=== PATIENT | male | born 1975 | race Caucasian/White ===

== ENCOUNTER 2021-10-19 09:15 | Emergency (ER) | payer MEDICARE, MEDICAID ==
[~2021-10-19] VITALS: Ht 177 cm; Wt 187.0 kg
[~2021-10-19 09:15] MED LIST: AMLO5TAB2 PO; ARPZ20T PO; CPR500T PO; DOXY100C2 PO; DULO30CA PO; HYDR1TAB PO; MELO-195 PO; METR500T PO; NABU750T PO
[2021-10-19] MEDS ORDERED: CYCL10TA25 PO (11:06)
[2021-10-19] MEDS ORDERED: ACHD5005 PO (11:06)
--- NOTE | 2021-10-19 11:07 | ED Back Pain ---
General Chief Complaint: Back Problems Stated Complaint: BACK PAIN Nursing Triage Note: pt. reports installing ceiling tile yesterday, reported "tweeking my lower back". reports reports taking tylenol last noc. reports not improving today. here for eval. Source of Information: Patient Exam Limitations: No Limitations (SHEA ALVA) History of Present Illness Date Seen by Provider: Oct 19, 2021 Time Seen by Provider: 11:03 Initial Comments Patient is a 46-year-old male who presents ED with back pain. Back pain started late last night early this morning. States he tweaked his back while climbing on a ladder helping a friend with ceiling tiles. Started having pain throughout his entire back worse to his lower back. Describes as sharp pain with muscle spasming with fatigue. Denies any falls. Denies of any bowel or urine incontinence, saddle paresthesia. 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 Denies chest pain, Ernst pain vomiting, diarrhea. Took Tylenol at home without much improvement. (SHEA ALVA) Allergies and Home Medications Allergies Coded Allergies: No Known Drug Allergies (Verified , 02/26/07) Patient Home Medication List Home Medication List Reviewed: Yes (SHEA ALVA) Amlodipine Besylate (Amlodipine Besylate) 5 Mg Tablet, 5 MG PO DAILY, (Reported) Entered as Reported by: ALBARO GIRON on 03/03/10921 Aripiprazole (Abilify 20 Mg) 20 Mg Tab, 20 MG PO DAILY, (Reported) Entered as Reported by: ALBARO GIRON on 03/03/10921 Ciprofloxacin (Cipro) 500 Mg Tablet, 1 TAB PO BID Prescribed by: JUSTYNA MCKEE on 04/18/121814 Cyclobenzaprine HCl (Cyclobenzaprine HCl) 10 Mg Tablet, 10 MG PO TID Prescribed by: SRINI CALDERA on 10/19/21 110 Duloxetine Hcl (Cymbalta) 30 Mg Capsule.dr, 30 MG PO DAILY, (Reported) Entered as Reported by: ALBARO GIRON on 03/03/10921 Hydrocodone Bit/Acetaminophen (Vicodin 5-500 Tablet) 1 Each Tablet, 1-2 EACH PO Q4HR PRN Prescribed by: JUSTYNA MCKEE on 04/18/121814 Hydrocodone/Acetaminophen (Hydrocodone-Acetamin 5-325 mg) 5 Mg-325 Mg Tablet, 1 TAB PO Q4H PRN for PAIN-MODERATE (5-7) Prescribed by: SRINI CALDERA on 10/19/21 1107 Metronidazole (Flagyl 500 Mg) 500 Mg Tab, 1 EACH PO TID Prescribed by: JUSTYNA MCKEE on 04/18/12 1815 Review of Systems Constitutional: No chills, No diaphoresis EENTM: No hearing loss, No blurred vision, No double vision, No mouth pain, No mouth swelling Respiratory: No cough Cardiovascular: No chest pain, No edema Gastrointestinal: No abdominal pain, No diarrhea, No nausea Genitourinary: No decreased output, No discharge Musculoskeletal: back pain; No joint pain; muscle pain Skin: No change in color, No change in hair/nails (SHEA ALVA) All Other Systems Reviewed Negative Unless Noted: Yes (SHEA ALVA) Past Nqxsilq-Pukheo-[id number] Hx Patient Social History Tobacco Use?: No Use of E-Cig and/or Vaping dev: No Substance use?: No Alcohol Use?: No (SHEA ALVA) Immunizations Up To Date Influenza Vaccine Up-to-Date: Yes; Up-to-Date (SHEA ALVA) Past Medical History Sleep Apnea Reproductive Disorders: No Sexually Transmitted Disease: No HIV/AIDS: No Bipolar Adverse Reaction/Blood Tranf: No (SHEA ALVA) Physical Exam Vital Signs Vital Signs - First Documented 10/19/21 10/19/21 09:48 11:35 Temp 36.8 Pulse 59 Resp 18 B/P (MAP) 157/108 Pulse Ox 97 O2 Delivery Room Air (BESSY BELTRAN MD) Vital Signs Capillary Refill : Less Than 3 Seconds (SHEA ALVA) Height, Weight, BMI Height: '" Weight: lbs. oz. [id number]; 59.00 BMI Method:Stated General Appearance: No Apparent Distress, WD/WN HEENT: PERRL/EOMI, TMs Normal, Normal ENT Inspection, Pharynx Normal Neck: Full Range of Motion, Normal Inspection, Non Tender, Supple Cardiovascular: Regular Rate, Rhythm, No Edema, No Gallop, No JVD, No Murmur Respiratory: Chest Non Tender, Lungs Clear, Normal Breath Sounds Gastrointestinal: Normal Bowel Sounds, No Organomegaly, No Pulsatile Mass, Non Tender Back: No Vertebral Tenderness, Other (Generalized back tenderness. No cervical, thoracic or lumbar midline tenderness.) Extremity: Normal Capillary Refill, Normal Inspection, Normal Range of Motion Neurologic/Psychiatric: Alert, Oriented x3, No Motor/Sensory Deficits, Normal Mood/Affect (SHEA ALVA) Progress/Results/Core Measures Results/Orders Medications Given in ED Current Medications Medications Dose Ordered Sig/Earlene Route Start Time Stop Time Status Last Admin Dose Admin Ketorolac Tromethamine 30 mg ONCE ONCE IM 10/19/21 11:15 10/19/21 11:16 DC 10/19/21 11:34 30 MG Orphenadrine Citrate 60 mg ONCE ONCE IM 10/19/21 11:15 10/19/21 11:16 DC 10/19/21 11:35 60 MG (BESSY BELTRAN MD) Vital Signs/I&O 10/19/21 10/19/21 09:48 11:35 Temp 36.8 36.0 Pulse 59 60 Resp 18 18 B/P (MAP) 157/108 Pulse Ox 97 98 O2 Delivery Room Air (BESSY BELTRAN MD) Departure Communication (PCP) This appears to be more muscle strain. No fall or trauma. No neurological deficits. Will discharge with few days worth of pain medication. Discussed anti-inflammatories. That he has at home such as Advil or Aleve. Will discharge with muscle relaxers. Discussed with patient do not drive with the muscle relaxer or narcotics. Do not operate machinery. Recommend rest. Return precaution were discussed with patient (SHEA ALVA) Impression Primary Impression: Back pain Disposition: 01 HOME, SELF-CARE Condition: Stable Departure-Patient Inst. Decision time for Depature: 11:05 (SHEA ALVA) Referrals: JAVIER TAMEZ DO (PCP/Family) Primary Care Physician Patient Instructions: Back Muscle Strain (DC) Scripts Hydrocodone/Acetaminophen (Hydrocodone-Acetamin 5-325 mg) 5 Mg-325 Mg Tablet 1 TAB PO Q4H PRN for PAIN-MODERATE (5-7), #8 TAB Prov: SHEA ALVA 10/19/21 Cyclobenzaprine HCl (Cyclobenzaprine HCl) 10 Mg Tablet 10 MG PO TID for Muscle Spasms, #16 TAB Prov: SHEA ALVA 10/19/21 ATTENDING PHYSICIAN NOTE: I was physically present as attending physician in the emergency department during the care of this patient, but I was not directly involved in the decision making or delivery of care for this patient. (BESSY BELTRAN MD) SHEA ALVA Oct 19, 2021 11:07 BESSY BELTRAN MD Oct 19, 2021 20:48
[2021-10-19] MEDS ORDERED: ORPHENADRINE 60 MG/2 ML (NORFLEX) AMP (ED ONLY) IM ONE (11:15)
[2021-10-19] MEDS ORDERED: KETOROLAC 30 MG/ML VIAL IM ONE (11:15)
== END 2021-10-19 11:36 | disposition home or self-care (01) ==
LOC: EDUNIT# 09:15 → ER 09:19
DX: M54.50 Low back pain, unspecified (principal)
CPT/HCPCS: 99281